=== PATIENT | female | born 1965 ===

== ENCOUNTER 2019-06-04 10:20 | Emergency (ER) | payer BC ==
[~2019-06-04] VITALS: Ht 154.9 cm; Wt 81.6 kg
[2019-06-04] MEDS ORDERED: LOSARTAN POTASS50 MG (10:28)
[2019-06-04] MEDS ORDERED: SYNTHROID75 MCG (10:29)
[2019-06-04] MEDS ORDERED: LIPITOR40 MG (10:29)
[2019-06-04] MEDS ORDERED: IBUPROFEN800 MG PO (12:00)
[2019-06-04] MEDS ORDERED: MAXITROL EYE DRO5 ML OP (12:00)
== END 2019-06-04 12:20 | disposition home or self-care (01) ==
LOC: ER 10:20
DX: S93.691A Other sprain of right foot, initial encounter (principal); M79.671 Pain in right foot; X50.0XXA Overexertion from strenuous movement or load, initial encounter; Y93.F2 Activity, caregiving, lifting; Y92.89 Other specified places as the place of occurrence of the external cause; Y99.8 Other external cause status